=== PATIENT | female | born 1965 | race Caucasian/White ===

== ENCOUNTER 2021-01-23 13:35 | Emergency (ER) | payer OTHER, SELFPAY ==
--- NOTE | ~2021-01-23 | CT_ITS ---
EXAMINATION: CT SOFT TISSUE NECK WITHOUT CONTRAST CLINICAL INFORMATION: Neck pain with difficulty swallowing. COMPARISON: None TECHNIQUE: Helical imaging was performed in the axial plane with generation of coronal and sagittal reformatted images. This CT examination was performed using dose optimization techniques as appropriate, variously including the following: *Automated exposure control. *Adjustment of mA and/or kV according to patient size (this includes techniques or standardized protocols for targeted exams where dose is matched to indication/reason for exam; i.e. extremities or head). *Use of iterative reconstruction technique. DLP: 408 mGy-cm FINDINGS: No contour abnormality is evident within the oral cavity, pharyngeal mucosal space or larynx, though assessment is somewhat limited due to extensive dental amalgam and implant beam hardening artifacts. No soft tissue fluid collection is seen. No bulky cervical adenopathy is evident. The imaged axilla and mediastinum appear grossly normal on this limited noncontrast study. The thyroid gland is unremarkable. The submandibular and parotid glands appear grossly normal. Post inflammatory calcifications visible in the oropharyngeal britt bilaterally. The patient is status post a previous anterior cervical discectomy and fusion with hardware instrumentation at the C6-C7 level. The orbits are normal. The imaged paranasal sinuses and mastoid air cells are fairly well aerated. The temporomandibular joints are normal. The imaged portions of the brain demonstrate no acute abnormality. The lungs are relatively clear with mild subpleural scarring at the apices. CT/CT soft tissue neck wo con IMPRESSION: Normal noncontrast CT scan of the neck. No acute process.
[2021-01-23 14:32] VITALS: BP 151/70; PULSE 70; RESP 18; TEMP 36.6; O2SAT 99; BMI 22.6
--- NOTE | 2021-01-23 16:57 | ED.NECK ---
HPI - Neck Pain/Injury General Chief Complaint: Neck Pain/Injury Stated Complaint: neck injury Time Seen by Provider: 01/23/21 16:48 Source: patient Mode of arrival: ambulatory Limitations: no limitations History of Present Illness HPI Narrative: 55 y/o female with history of neck surgery 7 years ago presents with worsening neck pain since she went [employer] [place] days ago. She does not recall any specific injury but states at the week went on, she had worsening neck pain along her spine and on the right side. It hurts to swallow and it hurts to look to the right. Whens she swallows she has pain on the front/right side of her neck. No choking episodes and she has been tolerating both solids and liquids. She has some tingling in her finger tips that is new over the last 1 week. She has no weakness, numbness, fever, chills, or headache. MD complaint: neck pain Onset (ago): day(s) (6) Place: street/outdoors Radiation: right lateral Severity: moderate Quality: burning and aching Duration: constant Relieving factors: cold therapy Exacerbating factors: movement of neck Associated symptoms: tingling and other (odonophagia ) Treatments prior to arrival: none Related Data Allergies Allergy/AdvReac Type Severity Reaction Status Date / Time codeine [CODEINE] Allergy Unknown ANAPHYLAXIS Verified 01/23/21 14:31 tramadol [TRAMADOL] Allergy Unknown ANAPHYLAXIS Verified 01/23/21 14:31 lidocaine Allergy Swelling Verified 01/23/21 14:31 Review of Systems Review of Systems: Constitutional: No Fever, No Chills ENT/Mouth: No sore throat, No Rhinorrhea, No Swallowing Difficulty, +painful swallowing Cardiovascular: No Chest Pain, No SOB, No Orthopnea, No Edema Respiratory: No Cough, No Sputum, No Wheezing, No dyspnea Gastrointestinal: No Nausea, No Vomiting, No Diarrhea, No abdominal Pain Musculoskeletal: + joint pain, + Myalgias Skin: No Skin Lesions, No rash Neuro: No Weakness, No Numbness, No Dizziness, No Headache Heme/Lymph: No Bruising, No Lymphadenopathy PMFSH Social History Social History Smoking Status: Current every day smoker Use of substances other than those prescribed or required for medical reasons: No Advance Directives: No Advance Directives Information Provided: No Physical Exam Vital Signs: Vital Signs: Last Vital Signs Temp 97.8 F 01/23/21 14:32 Pulse 76 01/23/21 17:48 Resp 18 01/23/21 17:48 BP 128/56 L 01/23/21 17:48 Pulse Ox 98 01/23/21 17:48 Body Mass Index 22.6 Appearance: Alert. Oriented X3. No acute distress. Eyes: Pupils equal, round and reactive to light. ENT: Pharynx normal. Neck: anterior neck with well healed surgical scar, supple, no LAD, mild right sided soft tissue tenderness, cervical spinal tenderness from C3 to C6. normal ROM CVS: Normal heart rate and rhythm. Pulses normal. Respiratory: No respiratory distress. Breath sounds normal. Abdomen: Soft and non-tender. +BS x4 Skin: Skin warm and dry. Normal skin color. Normal skin turgor. No rashes. Extremities: No lower extremity edema. Neuro: Oriented X 3. No motor deficit. No sensory deficit. Course Course Course Narrative: 55 y/o female presenting with neck pain after go-karting. No neuro deficits on exam. No known trauma. No headache. Minimal tenderness on the right also with cervical spinal tenderness. She denies hearing any popping sensations. Doubt carotid dissection. Will get CT cervical spine and soft tissues (given swallowing pain). Patient declining medication for pain at this time. Signed out to Donald JHA who will f/u CT scan.
[2021-01-23 17:48] VITALS: BP 128/56; PULSE 76; RESP 18; O2SAT 98
[2021-01-23] MEDS: Ibuprofen 600 MG TABLET PO (17:50)
[2021-01-23 19:47] VITALS: BP 145/68; PULSE 72; RESP 16; O2SAT 97
--- NOTE | 2021-01-23 19:48 | PC.NURSE ---
Pt reports no relief after Ibuprofen. Pt dressed, anxious to leave, requesting discharge paperwork. PA aware. VSS. Continue to monitor.
== END 2021-01-23 19:57 | disposition home or self-care (01) ==
PROVIDERS: Emergency Provider Internal Medicine; PCP Internal Medicine
DX: S19.9XXA Unspecified injury of neck, initial encounter (principal); M54.2 Cervicalgia; X58.XXXA Exposure to other specified factors, initial encounter; Y93.9 Activity, unspecified; Y92.9 Unspecified place or not applicable; Y99.9 Unspecified external cause status; F17.200 Nicotine dependence, unspecified, uncomplicated; Z71.6 Tobacco abuse counseling
CPT/HCPCS: 70490; 99283; 99284